=== PATIENT | female | born 1955 | race Caucasian/White ===

== ENCOUNTER → 2018-04-22 | Outpatient (CLI) | payer BC | LOC: RAD 09:31 | DX: Z12.31 Encounter for screening mammogram for malignant neoplasm of breast (principal) ==

== ENCOUNTER → 2019-08-26 | Outpatient (CLI) | payer BC | LOC: BC 09:29 | DX: Z12.31 Encounter for screening mammogram for malignant neoplasm of breast (principal) ==

== ENCOUNTER → 2020-10-06 | Outpatient (CLI) | payer BC | LOC: RAD 10:15 | PROVIDERS: ATTEND Obstetrics & Gynecology | DX: Z12.31 Encounter for screening mammogram for malignant neoplasm of breast (principal) ==

== ENCOUNTER → 2020-10-13 | Outpatient (CLI) | payer BC | LOC: ULTRA 09:43 | PROVIDERS: ATTEND Obstetrics & Gynecology | DX: N60.01 Solitary cyst of right breast (principal); R92.2 Inconclusive mammogram; N63.10 Unspecified lump in the right breast, unspecified quadrant ==